=== PATIENT | female | born 1990 | race Caucasian/White ===

== ENCOUNTER 2017-03-31 08:43 | Emergency (ER) | payer BC ==
[2017-03-31 08:45] VITALS: BP 128/65; PULSE 89; RESP 15; TEMP 98.7; O2SAT 98
[2017-03-31] MEDS ORDERED: NORE1CAP PO (08:58)
[2017-03-31] MEDS ORDERED: ONDANSETRON ODT 4 MG TAB PO ONE (09:45)
[2017-03-31] MEDS ORDERED: ZOFR4TAB PO (10:15)
--- NOTE | 2017-03-31 10:18 | PD ---
HPI Chief Complaint: GI Complaint Time Seen by Provider: 09:41 Travel History International Travel<30 days: No Contact w/Intl Traveler<30days: No Traveled to known affect area: No History of Present Illness HPI The patient was seen and examined in the presence of the nurse. This patient complains of nausea vomiting diarrhea. Duration 24 hours. Symptoms severity is moderate. No alleviating factors. Denies fever or abdominal pain. PFSH Past Medical History Diminished Hearing: No Integumentary: Yes (psoriasis) Tetanus Vaccination: < 5 Years Influenza Vaccination: No ?: Not LMP: 03/31/17 : 0 Para: 0 Past Surgical History Tonsillectomy: Yes Social History Alcohol Use: No Tobacco Use: No (ocassionally) Substance Use: No Allergies-Medications (Allergen,Severity, Reaction): Coded Allergies: codeine (Verified Allergy, Severe, HIVES, 03/31/17) Reported Meds & Prescriptions Reported Meds & Active Scripts Active Reported Taytulla (Norethindrone-Ethinyl Estradiol-Fe) 1-20 mg-Mcg Cap 1 Tab PO DAILY Review of Systems General / Constitutional: No: Fever HENT: No: Headaches Cardiovascular: No: Chest Pain or Discomfort Physical Exam Narrative GASTROINTESTINAL: Abdomen soft, non-tender, nondistended. Positive bowel sounds. No hepato-splenomegaly, or palpable masses. No guarding. SKIN: Focused skin assessment reveals minor psoriasis rash left foot but no ulcers. Skin is warm and dry. Palpation shows no induration or nodules. Psych: Normal mood and affect. Normal insight and judgment. Data Data Last Documented VS Vital Signs Date Time Temp Pulse Resp B/P (MAP) Pulse Ox O2 Delivery O2 Flow Rate FiO2 03/31/17 08:58 17 03/31/17 08:45 98.7 89 128/65 (86) 98 Orders Orders Ondansetron Odt (Zofran Odt) (03/31/17 09:45) MDM Medical Decision Making Medical Screen Exam Complete: Yes Emergency Medical Condition: Yes Medical Record Reviewed: Yes Differential Diagnosis Gastroenteritis, food poisoning, colitis Narrative Course I have reviewed the patient's electronic medical record. Patient has euvolemic with normal vital signs and soft benign nontender abdomen. Likely has a viral gastroenteritis. Zofran dose given now and prescription for same Diagnosis Primary Impression: Nausea vomiting and diarrhea Additional Instructions: The patient was advised to follow up with their physician and return if they worsen. I have recommended clear liquids for 24 hours, then gradually advance as tolerated. Med/Other Pt SpecificInfo: Prescription(s) given Scripts Ondansetron (Zofran) 4 Mg Tab 4 MG PO Q6HR Y for NAUSEA OR VOMITING, #12 TAB 0 Refills Prov: Lg Flores MD 03/31/17 Disposition: 01 DISCHARGE HOME Condition: Stable Lg Flores MD Mar 31, 2017 10:18
[2017-03-31 10:30] VITALS: BP 124/83; TEMP 97.9
== END 2017-03-31 10:30 | disposition home or self-care (01) ==
LOC: NEPD 08:43
DX: R11.2 Nausea with vomiting, unspecified (principal); R19.7 Diarrhea, unspecified
CPT/HCPCS: 99283